=== PATIENT | male | born 1995 ===

== ENCOUNTER 2024-08-03 16:03 | Emergency (ER) | payer BC, SELFPAY ==
--- NOTE | 2024-08-03 16:09 | ED_ITS ---
HPI - General Adult General Time Seen by Provider: 16:09 Date Seen: 08/03/24 Chief complaint: Abdominal Pain Stated complaint: Bowel Pain Time Seen by Provider: 08/03/24 16:08 Source: patient, RN notes reviewed and old records reviewed Mode of arrival: ambulatory Limitations: no limitations History of Present Illness HPI narrative: 28-year-old male who comes in today with low abdominal pain. This been going on for 3 days. He reports that he has been stooling but less than usual and feels like he is not completely emptying. No blood in the stools. No fevers or chills. Had COVID a couple weeks ago and had vomiting none but that is resolved. Denies urinary symptoms. Reports history of a urethral reconstruction related to trauma about 10 years ago. Related Data Home Medications ?Medication ?Instructions ?Recorded ?Confirmed methylphenidate HCl 54 mg 54 mg PO QAM 08/03/24 08/03/24 tablet,extended release 24 hr omeprazole 20 mg capsule,delayed 20 mg PO DAILY 08/03/24 08/03/24 release venlafaxine 75 mg capsule,extended 75 mg PO DAILY 08/03/24 08/03/24 release 24 hr Previous Rx's ?Medication ?Instructions ?Recorded docusate sodium 100 mg capsule 100 mg PO BID #10 caps 08/03/24 (Colace) Allergies Allergy/AdvReac Type Severity Reaction Status Date / Time sulfamethoxazole (From Allergy Unknown Verified 08/03/24 16:43 Bactrim) trimethoprim (From Bactrim) Allergy Unknown Verified 08/03/24 16:43 Exam Narrative: Exam Narrative: General: Well-developed and well-nourished, no acute distress Head: Atraumatic and normocephalic Eyes: Pupils are equal reactive, extraocular motions intact, conjunctiva clear ENT: External nose and ears are normal, posterior pharynx without erythema or exudate Neck: No midline cervical tenderness, full spontaneous range of motion the neck, trachea midline, no adenopathy Heart: Regular rate and rhythm no murmurs or thrills Lungs: Clear to auscultation bilaterally without wheezes or crackles Abdomen: Soft, suprapubic and right lower quadrant tenderness, nondistended with active bowel sounds Musculoskeletal: No tenderness, deformity, or edema Neurologic: Awake, alert, and oriented x3, no gross focal neurologic deficits, cranial nerves intact as tested Psych: Mood and affect are appropriate Skin: No rashes Const: Vital Signs, click to edit/add: Vital Signs - 24 hr 08/03/24 16:12 Temperature 97.2 F L Pulse Rate [Pulse Oximeter] 96 Respiratory Rate 20 Blood Pressure [Ri ght Upper Arm] 152/112 H Pulse Oximetry 96 Oxygen Delivery Me thod Room Air Course Course ED Course: Reviewed most recent nurse triage note from July 20 when patient called, at that time COVID positive with vomiting. Also reviewed [facility] roenterology visit from February 2024 which was for elevated LFTs, patient also has a history MASLD and elevated AST and ALT. Patient presents with 3 days of lower abdominal pain and pressure, no diarrhea, feels like he is not completely emptying his bowels. No fever. On exam here has suprapubic and right lower quadrant tenderness. Concern for possible colitis, appendicitis, constipation also possible but clinically little less likely as patient says he has been moving his bowel. Labs and CT scan are ordered. Reevaluation(s) Time of Reevaluation #1: 17:09 Reevaluation #1: Labs independently interpreted by me with normal CBC. CT abdomen pelvis and panel interpreted by me does not demonstrate any acute intra-abdominal or pelvic pathology, no evidence for acute appendicitis, diverticulitis, colitis, obstruction. CT abd/pelvis: IMPRESSION: 1. Normal appendix. No acute appendicitis. 2. Small amount of hyperdense material within the gastric lumen and loops of small bowel in the right lower quadrant, incompletely evaluated on this single- phase examination, likely related to ingested contents. If there is clinical suspicion for a gastrointestinal bleed, recommend repeat multiphasic CT utilizing a gastrointestinal bleed protocol. 3. Severe diffuse hepatic steatosis. 4. Otherwise, no acute abdominopelvic findings. The etiology of the patient`s abdominal pain is not elucidated on this examination. Time of Reevaluation #2: 17:16 Reevaluation #2: Labs in bili interpreted by me with normal basic metabolic panel, elevated AST, ALT, and direct bilirubin which have previously been seen for this patient and related to MASLD. Urinalysis is pending. Vital Signs Vital signs: Initial Vital Signs Temperature 97.2 F L 08/03/24 16:12 Temperature Source Temporal Artery Scan 08/03/24 16:12 Pulse Rate 96 08/03/24 16:12 Respiratory Rate 20 04/29/25 16:12 Blood Pressure 152/112 H 08/03/24 16:12 Blood Pressure Mean 125 H 08/03/24 16:12 Blood Pressure Position Sitting 08/03/24 16:12 Pulse Oximetry 96 08/03/24 16:12 Oxygen Delivery Method Room Air 08/03/24 16:12 Vital Signs Temperature 97.2 F L 08/03/24 16:12 Pulse Rate 96 08/03/24 16:12 Respiratory Rate 08/03/24 16:12 Blood Pressure 152/112 H 08/03/24 16:12 Pulse Oximetry 96 08/03/24 16:12 Oxygen Delivery Method Room Air 08/03/24 16:12 Temperature 97.2 F L 08/03/24 16:12 Pulse Rate 96 08/03/24 16:12 Respiratory Rate 08/03/24 16:12 Blood Pressure 152/112 H 08/03/24 16:12 Pulse Oximetry 96 08/03/24 16:12 Oxygen Delivery Method Room Air 08/03/24 16:12 Medical Decision Making Lab Data Labs: Lab Results 08/03/24 08/03/24 Range/Units 16:29 16:40 WBC 5.64 (4.50-11.00) K/uL RBC 5.38 (4.30-5.90) m/uL Hgb 16.3 (13.5-17.5) gm/dL Hct 47.4 (37.0-53.0) % MCV 88 (80-100) fL MCH 30 (26-34) pg MCHC 34 (32-36) gm/dL RDW Coeff of [place] 12.0 (11.5-15.5) % Plt Count 361 (140-440) K/uL Neut % (Auto) 54.9 (42.0-72.0) % Lymph % (Auto) 29.8 (20-44) % [place] % (Auto) 9.4 (0.0-11.0) % Eos % (Auto) 4.6 (0.0-7.0) % Baso % (Auto) 0.9 (0.0-3.0) % Neut # (Auto) 3.10 (1.7-7.0) K/uL Lymph # (Auto) 1.68 (0.90-2.90) K/uL [place] # (Auto) 0.50 (0.00-0.90) K/UL Eos # (Auto) 0.26 (0.00-0.50) K/uL Baso # (Auto) 0.05 (0.00-0.30) K/uL Abs Immat Gran (auto) 0.02 (0.00-0.30) K/uL Imm/Tot Granulo (auto) 0.4 % Sodium 137 (135-149) mmol/L Potassium 3.9 (3.6-5.1) mmol/L Chloride 100 (96-114) mmol/L Carbon Dioxide 25 (20-32) mmol/L Anion Gap 12 (7-15) mEq/L BUN 11 (5-24) mg/dL Creatinine 1.0 (0.5-1.5) mg/dL Estimated Creat Clear 136.23 Estimated GFR 106 ml/min Glucose 106 (60-115) mg/dL Calcium 9.8 (8.4-10.6) mg/dL Total Bilirubin 1.4 (0.1-1.5) mg/dL Direct Bilirubin 0.6 H (0.0-0.5) mg/dL AST 180 H (12-35) U/L ALT 426 H (4-50) U/L Alkaline Phosphatase 97 (40-150) U/L Total Protein 7.8 (6.0-8.3) g/dL Albumin 5.0 (3.3-5.0) g/dL Urine Color Yellow (Yellow) Urine Appearance Clear (Clear) Urine pH 6.0 (5.0-8.5) Ur Specific [place] <= 1.005 (1.000-1.030) Urine Protein Negative (Negative) Urine Glucose (UA) Negative (Negative) Urine Ketones Negative (Negative) Urine Blood Negative (Negative) Urine Nitrite Negative (Negative) Urine Bilirubin Negative (Negative) Urine Urobilinogen 0.2 (0.2-1.0) Ur Leukocyte Esterase Negative (Negative) Discharge Plan Discharge Clinical Impression: Acute pelvic pain Patient Disposition: Home, Self-Care Condition: Stable Instructions: Pelvic Pain in Men (ED) Additional Instructions: Take stool softeners prescribed Tylenol and ibuprofen as needed for pain Follow-up with your primary care doctor in 3-5 days if needed Activity Level: No Restrictions Discharge Diet: Clear Liquid Prescriptions: New docusate sodium [Colace] 100 mg capsule 100 mg PO BID Qty: 10 0RF No Action venlafaxine 75 mg capsule,extended release 24hr 75 mg PO DAILY methylphenidate HCl 54 mg tablet extended release 24hr 54 mg PO QAM omeprazole 20 mg capsule,delayed release(DR/EC) 20 mg PO DAILY Stand Alone Forms: [facility] Info Instructions
[2024-08-03 16:12] VITALS: BP 152/112; PULSE 96; RESP 20; TEMP 36.2; O2SAT 96; BMI 35.3
--- NOTE | 2024-08-03 16:28 | CRLHL7_ITS ---
For Patients: As a result of the 21st Century Cures Act, medical imaging exams and procedure reports are released immediately into your electronic medical record. You may view this report before your referring provider. If you have questions, please contact your health care provider. INDICATION: Abdominal pain. TECHNIQUE: Multiplanar CT examination of the abdomen and pelvis was performed after the administration of 143 mL Isovue 370 intravenous contrast. COMPARISON: None. FINDINGS: Lower chest: No focal consolidation. Normal heart size. No pleural effusions or pneumothorax. Subsegmental and dependent atelectasis. Small hiatal hernia. Liver: Severe diffuse hepatic steatosis. Gallbladder: Unremarkable. Biliary: Unremarkable. Pancreas: Within normal limits. Spleen: Unremarkable. Adrenal glands: Unremarkable. Renal/ureters/bladder: Normal in size and symmetrically enhancing. No obstructive uropathy. No hydronephrosis or obstructive urinary calculi. No suspicious renal masses. The ureters appear unremarkable. The bladder is within normal limits. Pelvis: Unremarkable prostate. Gastrointestinal: Small amount of hyperdense material within the small bowel of the right lower quadrant and gastric lumen, poorly evaluated on this single-phase examination, may be related to ingested contents. No bowel wall thickening or bowel obstruction. Normal appendix. No significant colonic diverticulosis. Mild colonic stool burden. Vasculature: No aortic aneurysm. The portal vein remains patent. No significant atherosclerotic calcifications. Lymph nodes: No pathologic lymphadenopathy by size criteria. Peritoneum: No free fluid or pneumoperitoneum. No drainable fluid collections. Abdominal wall/soft tissues: Unremarkable. Small fat containing umbilical hernia. Bones: No acute osseous abnormalities. Chronic right L5 pars defect. IMPRESSION: 1. Normal appendix. No acute appendicitis. 2. Small amount of hyperdense material within the gastric lumen and loops of small bowel in the right lower quadrant, incompletely evaluated on this single-phase examination, likely related to ingested contents. If there is clinical suspicion for a gastrointestinal bleed, recommend repeat multiphasic CT utilizing a gastrointestinal bleed protocol. 3. Severe diffuse hepatic steatosis. 4. Otherwise, no acute abdominopelvic findings. The etiology of the patient`s abdominal pain is not elucidated on this examination. Please note that all CT scans at this facility use dose modulation, iterative reconstruction, and/or weight-based dosing when appropriate to reduce radiation dose to as low as reasonably achievable. Dictated by Orion Ramírez MD @ 08/03/2024 5:02:57 PM (Electronically Signed)
[2024-08-03 16:46] LABS: Basophils Absolute Auto 0.05 K/uL (0.00-0.30); Basophils Percent Auto 0.9 % (0.0-3.0); Eosinophils Absolute Auto 0.26 K/uL (0.00-0.50); Eosinophils Percent Auto 4.6 % (0.0-7.0); Hematocrit 47.4 % (37.0-53.0); Hemoglobin* 16.3 gm/dL (13.5-17.5); Immature Granulocytes Abs Auto 0.02 K/uL (0.00-0.30); Immature Granulocytes Pct Auto 0.4 %; Lymphocytes Absolute Auto 1.68 K/uL (0.90-2.90); Lymphocytes Percent Auto 29.8 % (20-44); Mean Corpuscular HGB Conc 34 gm/dL (32-36); Mean Corpuscular Hemoglobin 30 pg (26-34); Mean Corpuscular Volume 88 fL (80-100); Monocytes Percent Auto 9.4 % (0.0-11.0); Neutrophils Percent Auto 54.9 % (42.0-72.0); Platelet Count* 361 K/uL (140-440); Red Blood Count 5.38 m/uL (4.30-5.90); White Blood Count* 5.64 K/uL (4.50-11.00)
[2024-08-03 16:49] LABS: Slide Review Reflex No
[2024-08-03 17:04] LABS: Chloride* 100 mmol/L (96-114)
[2024-08-03 17:05] LABS: Potassium* 3.9 mmol/L (3.6-5.1); Sodium* 137 mmol/L (135-149)
[2024-08-03 17:07] LABS: Alanine Aminotransferase* 426 U/L (4-50); Alkaline Phosphatase* 97 U/L (40-150); Anion Gap 12 mEq/L (7-15); Aspartate Amino Transferase* 180 U/L (12-35); Bilirubin Direct* 0.6 mg/dL (0.0-0.5); Bilirubin Total* 1.4 mg/dL (0.1-1.5); Blood Urea Nitrogen* 11 mg/dL (5-24); Calcium* 9.8 mg/dL (8.4-10.6); Carbon Dioxide* 25 mmol/L (20-32); Est. Creatinine Clearance* 136.23; Estimated Glomerular Filt Rate 106 ml/min; Glucose* 106 mg/dL (60-115); Total Protein* 7.8 g/dL (6.0-8.3)
[2024-08-03 17:10] LABS: Appearance Urine Clear (Clear); Bilirubin Urine Negative (Negative); Blood Urine Negative (Negative); Color Urine Yellow (Yellow); Glucose Urine Negative (Negative); Ketones Urine Negative (Negative); Leukocyte Esterase Urine Negative (Negative); Nitrite Urine Negative (Negative); Protein Urine Negative (Negative); Specific Gravity Urine <= 1.005 (1.000-1.030); Urobilinogen Urine 0.2 (0.2-1.0)
[2024-08-03 17:35] LABS: Bacteria Urine Few; RBC Urine 0-2 (0-2); Squamous Epithelial Cell Urine Few (None-Few); WBC Urine 0-2 (0-5)
== END 2024-08-03 17:53 | disposition home or self-care (01) ==
PROVIDERS: Emergency Provider Family Medicine; PCP Surgery
DX: R10.2 Pelvic and perineal pain (principal)
CPT/HCPCS: 36415; 74177; 80048; 80076; 81001; 85025; 87086; 99283; 99284; Q9967

== ENCOUNTER 2024-08-06 16:34 | Emergency (ER) | payer BC, SELFPAY ==
--- OUTSIDE RECORDS SUMMARY | 2024-08-06 16:37 | XMS_ITS | Clinical Summary ---
Author Organization [facility] Address [address] [place] [id number] Care Team Providers Care Customer Consultant Name Role Phone Willie Gonzalez MD Primary Care Provider [phone] Allergies Active Allergy Reactions Criticality Noted Date Comments Sulfamethoxazole-Trime thoprim Rash 03/29/2013 Prednisone Other - Describe In Comment Field 11/21/2022 Depression and Irritability. Medications methylphenidate (Concerta) 54 mg extended-release tabletIndications:At tention deficit hyperactivity disorder (ADHD), predominantly inattentive type Take 1 Tablet (54 mg) by mouth once daily. 30 Tablet 4 Active venlafaxine (EFFEXOR XR) 75 mg cp24 Extended-Release capsuleIndications:G AD (generalized anxiety disorder),Moderate single current episode of major depressive disorder (HC) Take 1 Capsule (75 mg) by mouth once daily with a meal. 90 Capsule 3 4 Active methylphenidate (Concerta) 54 mg extended-release tabletIndications:At tention deficit hyperactivity disorder (ADHD), predominantly inattentive type Take 1 Tablet (54 mg) by mouth once daily. 30 Tablet 4 Active cyclobenzaprine (FLEXERIL) 10 mg tabletIndications:Ce rvical strain, acute, initial encounter Take 1 Tablet (10 mg) by mouth 3 times daily if needed for Muscle Spasm. 30 Tablet 4 Active methylphenidate 54 mg extended-release tabletIndications:At tention deficit hyperactivity disorder (ADHD), predominantly inattentive type Take 1 Tablet (54 mg) by mouth once daily. 30 Tablet 5 Active methylphenidate ER (Concerta) 54 mg extended release tabletIndications:At tention deficit hyperactivity disorder (ADHD), predominantly inattentive type Take 1 Tablet (54 mg) by mouth once daily. 30 Tablet 5 Active omeprazole (PRILOSEC) 20 mg Delayed-Release capsuleIndications:H istory of gastroesophageal reflux (GERD) Take 1 Capsule (20 mg) by mouth once daily before a meal. Take 30 minutes prior to a meal 90 Capsule 3 5 Active methylphenidate ER (Concerta) 54 mg extended release tabletIndications:At tention deficit hyperactivity disorder (ADHD), predominantly inattentive type Take 1 Tablet (54 mg) by mouth once daily. 30 Tablet 5 025 Active Problems Problem Noted Date Diagnosed Date Gastroesophageal reflux disease 05/23/2023 Lumbar pars defect 02/14/2022 Chronic low back pain without sciatica Controlled substance agreement signed 07/31/2018 Overview (07/31/2018): Signed 07/29/18 Dr Soraida Alston Psychiatry Cannabis abuse 05/26/2016 Overview (03/25/2022): Quit using 12/2021 BRYCE (generalized anxiety disorder) 05/24/2016 Moderate single current epis ode of major depressive disorder 05/24/2016 Attention deficit disorder without mention of hy peractivity 01/23/2010 Resolved Problems Problem Noted Date Diagnosed Date Resolved Date Controlled substance agreement signed 08/30/2016 04/11/2021 Overview (08/30/2016): Signed 06/11/16 Fabby Castellanos MD, psychiatry/ Cluster C personality disorder 05/24/2016 06/22/2021 Marijuana abuse 08/01/2015 12/17/2017 Adjustment disorder with mix ed anxiety and depressed mood 02/06/2015 04/11/2021 Unspecified adjustment reaction 12/14/2009 02/06/2015 Overview (12/14/2009): Evaluate for mood, behavior, ADD Encounters Date Type Department Care Team Description 08/05/2024 Travel 07/20/2024 Nurse Triage [facility] [address] [place] [address] Willie Gonzalez MD Vomiting; Covid-19 Positive Result 06/01/2024 3:40 PM LICENSED NUCLEAR OPERATOR Telemedicine [facility] [address] [facility] [address] Willie Gonzalez MD Medication Management 06/01/2024 Travel 05/31/2024 Refill [facility] [address] [place] [address] Willie Gonzalez MD Refill Request (Methylphenidate) from Last 3 Months Immunizations Immunization Administration Dates Next Due COVID-19 VACCINE SPIKEVAX (M ODERNA 50MCG/0.5ML) 12YO+ PFS 05/23/2023 COVID-19 vaccine (Moderna 100mcg/0.5mL) PF, MDV 03/15/2021,08/17/2020,07/20/2020 COVID-19 vaccine (Pfizer-Bio NTech 30mcg/0.3mL) 12YO+ BIVALENT PF, MDV 03/25/2022 DTaP 12/04/2001, 9,02/22/1998,05/18,03/18/1997,01/24/1997 HPV 9 (Gardasil 9) 11/14/2023,06/22/2021 Hepatitis B (Peds) 05/18/1997,01/24/1997, 997 Hepatitis B, Unspecified 05/18/1997,01/24/1997,0 1996 Hib Conjugate, Unspecified 02/22/1998,,03/18/1997,01/24 Inactivated Polio Vaccine 05/18/1997,03/18/1997, 01/24/1997 Influenza Virus, Unspecified 03/11/2003 Influenza, IIV4 05/23/2023,12/24/2021,12/22/2019 MENINGOCOCCAL VACCINE 2 VIAL 2MO-55YO (MENVEO) 10/25/2013 MMR 01/05/2010,02/22/1998 Pneumococcal Poly,23-Valent (Pneumovax) 06/22/2021 Td (Age >=7 Years) 06/22/2021 Tdap 12/07/2009 Varicella Vaccine 09/22/2012,11/20/1998 Family History Medical History Relation Name Comments Psychiatric illness Father Unknown Mother donor egg used Psychiatric illness Paternal Aunt ADHD Psychiatric illness Paternal Grandfather dyslexia and possible ADD Heart Disease No Family History Relation Name Status Comments Father Mother Paternal Aunt Paternal Grandfather Social History Tobacco Use Types Packs/Day Years Used Date Smoking Tobacco: Every Day Cigarettes 0.3 2.3 Started: 2022 Smokeless Tobacco: Never Tobacco Cessation:Ready to Q uit: No; Counseling Given: Yes Comments:1 cigs per day Alcohol Use Standard Drinks/Week Comments Not Currently 0 (1 standard drink = 0.6 oz pur e alcohol) once a month PHQ-2 Answer Date Recorded PHQ-2 TOTAL SCORE 5 06/01/2024 Social Connections Answer Date Recorded Do you often feel lonely or isolated from those around you? 0 08/05/2024 Financial Resource Strain Answer Date R ecorded Difficulty of Paying Living Expenses 3 08/05/2024 Difficulty of Paying Living Expenses Not on file 08/05/2024 Food Insecurity Answer Date Recorded Do you worry your food will run out before you are able to buy more? 1 08/05/2024 Transportation Needs Answer Date Record ed Does lack of transportation keep you from medica l appointments? 1 08/05/2024 Does lack of transportation keep you from work, meetings or getting things that you need? 1 08/05/2024 Housing Stability Answer Date Recorded What is your housing situation today? 1 08/05/2024 Utilities Answer Date Recorded Do you have trouble paying f or utilities (for example, heat, electricity, water, phone)? 1 08/05/2024 Sex and Gender Information Value Date Recorded Sex Assigned at Not on file Legal Sex Male 7:58 AM LICENSED NUCLEAR OPERATOR Gender Identity Not on file Sexual Orientation Not on file Obstetrics History Last Filed Vital Signs Vital Sign Reading Time Taken Comments Blood Pressure 138/94 04/08/2024 4:18 PM LICENSED NUCLEAR OPERATOR rec heck Pulse 98 04/08/2024 4:15 PM LICENSED NUCLEAR OPERATOR Temperature 36.7 C (98 F) 12/22/2019 3:20 PM CDT Respiratory Rate 18 07/29/2018 2:13 PM CDT Oxygen Saturation 85% 04/08/2024 4:15 PM LICENSED NUCLEAR OPERATOR Inhaled Oxygen Concentration - - Weight 131.9 kg (290 lb 11.2 oz) 04/08/2024 4:15 PM LICENSED NUCLEAR OPERATOR Height 193 cm (6' 3.98) 01/02/2023 2:47 PM CDT Body Mass Index 35.4 01/02/2023 2:47 PM CDT Plan of Treatment Upcoming Encounters Date Type Department Care Team (Late st Contact Info) Description 08/10/2024 2:55 PM CDT Office Visit [facility] [address] [place] [address] Jackie Stubbs DO [address] [place] [address] Health Maintenance Due Date Last Done Comments BMI (ht and wt on same day) for age 18+ 12/21/2020 12/22/2019, 06/11/2019, 04/14/2019, Additional history exists COVID-19 vaccine series (2023- season) 2023 05/23/2023, 03/25/2022, 03/15/2021, Additional history exists Pneumococcal series for age 6-49 (2 of 2 - PCV) 11/13/2024 06/22/2021 Postponed from 06/22/2022 (Provider discretion) Influenza Vaccine (Season Ended) 2024 05/23/2023, 12/24/2021, 12/22/2019, Additional history exists Depression screening for age 12+ 06/01/2025 06/01/2024, 05/31/2024, 11/18/2023, Additional history exists Tetanus booster 06/23/2031 06/22/2021, 12/07/2009 Tdap Completed 12/07/2009 HIV for age 15-65 Completed 11/14/2023 Hepatitis C screening for age 18-79 Completed 11/14/2023 Procedures Procedure Name Priority Date/Time Associated Diagnosis Comments ANTI HIV 1/2 Routine 11/14/2023 4:54 PM CDT Screening for HIV (human immunodeficiency virus) ANTI HCV Routine 11/14/2023 4:54 PM CDT Need for hepatitis C screening test from Last 3 Months or Most Recently Relevant to Health Maintenance Results * ANTI HCV (11/14/2023 4:54 PM CDT) Pathologist [facility] [place] HEPATITIS C ANTIBODY Non-Reacti ve Non-React missy 11/17/2023 2:[address] PM [address] [facility] Comment:Please note, per www .CDC.gov: If a patient is known to be at high risk of HCV infection, or is symptomatic, and the physician's suspicion of HCV infection is high, HCV RNA testing is often employed and is of diagnostic value, even after an initial negative anti-HCV test result. Blood BLOOD SPECIMEN / Unknown Venipuncture / Unknown 11/14/2023 4:54 PM CDT 11/14/2023 4:56 PM CDT Willie Gonzalez MD SEND OUTS Final Resu lt Performing Organization Address [facility]/ZIP Co de Phone Number [facility] [address] [place] [id number], [place] * ANTI HIV 1/2 [33697.0] (11/14/2023 4:54 PM CDT) [facility] HIV-1/HIV-2 SCREEN Non-Reacti ve Non-Reacti ve 11/17/2023 2:51 [address] [facility] Comment:HIV-1 p24 and HIV-1/ HIV-2 Ab Not Detected. Blood BLOOD SPECIMEN / Unknown Venipuncture / Unknown 11/14/2023 4:54 PM CDT 11/14/2023 4:56 PM CDT Willie Gonzalez MD SEND OUTS Final Resu lt Performing Organization Address City/[facility]/ZIP Co de Phone Number [facility] [address] [place] [id number], [place] from Last 3 Months or Most Recently Relevant to Health Maintenance Insurance [facility] [place] Care Teams Customer Consultant Relationship Specialty Start Date End Date Willie Gonzalez MD [address] [place] [address] PCP - General Family Practice 12/05/21
[2024-08-06 16:50] VITALS: BP 156/106; PULSE 117; RESP 18; TEMP 36.4; O2SAT 97; BMI 33.7
[2024-08-06 17:47] VITALS: BP 143/97; PULSE 111; RESP 14; TEMP 36.1; O2SAT 97; BMI 35.3
--- NOTE | 2024-08-06 18:13 | CRLHL7_ITS ---
For Patients: As a result of the Century Cures Act, medical imaging exams and procedure reports are released immediately into your electronic medical record. You may view this report before your referring provider. If you have questions, please contact your health care provider. INDICATION: RLQ ABD PAIN COMPARISON: 08/03/24 CT abdomen and pelvis TECHNIQUE: CT of the abdomen and pelvis with and without intravenous contrast () utilizing a GI bleed protocol. Reconstructed images/MIPS were created. FINDINGS: Lung bases: No pleural effusion. Liver: Smooth hepatic contour. There is hepatic steatosis with areas of focal fatty sparing. No suspicious hepatic lesions are identified. Gallbladder and biliary tree: Unremarkable CT appearance. Spleen: No splenomegaly. Pancreas: Normal. Adrenal glands: Normal. Kidneys and ureters: No hydroureteronephrosis. No suspicious renal lesions are identified. Bladder: Unremarkable CT appearance. Visualized reproductive organs: Unremarkable CT appearance. Gastrointestinal tract: No active contrast extravasation is detected in the bowel. Normal appendix. No focal abnormally dilated loops of bowel. Peritoneal cavity: No free fluid or free air. Lymph nodes: No enlarged abdominal or pelvic lymph nodes by CT size criteria. Vessels: No abdominal aortic aneurysm. The abdominal aorta and its major branches are patent. Abdominal and pelvic wall: Normal. Bones: No acute osseous findings. Similar mild anterior vertebral body wedging centered at the thoracolumbar junction. There are multilevel Schmorl`s nodes. Similar chronic right-sided L5 pars defect. IMPRESSION: 1. No acute findings. No active contrast extravasation is detected in the bowel. 2. Chronic and incidental findings as detailed above. Please note that all CT scans at this facility use dose modulation, iterative reconstruction, and/or weight-based dosing when appropriate to reduce radiation dose to as low as reasonably achievable. Dictated by John Etienne MD @ 08/06/2024 7:40:37 PM (Electronically Signed)
--- NOTE | 2024-08-06 18:23 | ED_ITS ---
HPI - General Adult General Chief complaint: Abdominal Pain Stated complaint: stomach pain Time Seen by Provider: 08/06/24 17:48 Source: patient Mode of arrival: ambulatory Limitations: no limitations History of Present Illness HPI narrative: 28-year-old male presenting today with right lower quadrant abdominal pain is been going on for 6 days. Patient was seen in the emergency department 3 days ago where no source of his pain was identified at that time. He was instructed to take a stool softener which she has been doing. He states he has been having daily bowel movements, last 1 was yesterday however, he states that his bowel movement yesterday was dark black. He denies taking any Pepto-Bismol or iron supplementation. He states that he feels slightly lightheaded that the pain has not gotten any better in the last 3 days. He states that this morning he vomited. Has been able to eat anything today and for most of yesterday. Denies any difficulty with urination. Denies any blood in his urine urine or blood in his vomitus. Denies chest pain, denies feeling short of breath. Reviewing his workup from 3 days ago, LFTs are elevated. He does have a history of elevated LFTs and fatty liver. He also states that he had a urethral reconstruction, denies any intra-abdominal surgery. CT scan done 3 days ago showed diffuse hepatic steatosis, and a small amount of hyperdense material within the gastric lumen and loops of small bowel in the right lower quadrant incompletely evaluated. Likely related to ingested contents however, there is a clinical suspicion for GI bleed recommend repeat m ultiphasic CT using a GI bleed protocol. Patient denies any family history of inflammatory bowel disease or colon cancer. Related Data Home Medications ?Medication ?Instructions ?Recorded ?Confirmed methylphenidate HCl 54 mg 54 mg PO QAM 08/03/24 08/03/24 tablet,extended release 24 hr omeprazole 20 mg capsule,delayed 20 mg PO DAILY 08/03/24 08/03/24 release venlafaxine 75 mg capsule,extended 75 mg PO DAILY 08/03/24 08/03/24 release 24 hr Previous Rx's ?Medication ?Instructions ?Recorded docusate sodium 100 mg capsule 100 mg PO BID #10 caps 08/03/24 (Colace) Allergies Allergy/AdvReac Type Severity Reaction Status Date / Time sulfamethoxazole (From Allergy Unknown Verified 08/06/24 18:43 Bactrim) trimethoprim (From Bactrim) Allergy Unknown Verified 08/06/24 18:43 Review of Systems Status of ROS: Reports: 10 or more systems reviewed and unremarkable except as noted in History and below [facility] Social History Smoking Status: Never smoker How often do you have a drink containing alcohol: monthly or less AUDIT-C Alcohol total score: 1 Non-prescribed substance use: denies use service: No Exam Narrative: Exam Narrative: Overweight, well-developed patient in no acute distress. Alert and oriented. Answers questions appropriately. Mood and affect are appropriate. Thoughts are goal oriented and rational. No tangential or magical thinking noted. Patient speaks in full sentences without needing to catch his breath. It does not appear as though the patient wears deodorant and he has a very strong odor. HEENT: Normocephalic atraumatic. Pupils are equally round reactive to light. Extraocular muscles are intact. Conjunctivae are moist without any icterus noted. Moist mucous membranes. Posterior pharynx is normal. Neck is soft. Cardiovascular: Tachycardic. S1-S2 present without any murmurs. Lungs: Clear to auscultation bilaterally no wheezes rhonchi or rales are appreciated. Patient takes deep breaths without any discomfort. Abdomen: Soft and nondistended with normal bowel sounds. He has some diffuse discomfort across the lower abdomen, worse on the right. No right upper quadrant, left upper quadrant or epigastric pain. Extremities: Bilateral lower extremities are without edema. Skin: Well perfused without any obvious rashes. Const: Vital Signs, click to edit/add: Vital Signs - 24 hr 08/06/24 16:50 08/06/24 17:47 Temperature 97.6 F 97 F L Pulse Rate [Pulse Oximeter] 117 H 111 H Respiratory Rate 18 14 Blood Pressure [Ri ght Upper Arm] 156/106 H 143/97 H Pulse Oximetry 97 97 Oxygen Delivery Me thod Room Air Room Air Course Course ED Course: IV is established. Patient appears clinically dehydrated to 2 L of normal saline were ordered. Labs were drawn: CBC shows hemoconcentration with a hemoglobin of 18. The electrolytes are unremarkable. LFTs continue to be elevated. Urine shows signs of dehydration with 1+ protein, 2+ ketone. Normal CRP. Normal lipase. Lactate slightly elevated 2.2. Given his worsening pain and potential abnormality noted on previous CT and dark stools, we did proceed with a GI bleed protocol abdominal CT scan. This was unremarkable. Vital Signs Vital signs: Initial Vital Signs Temperature 97.6 F 08/06/24 16:50 Temperature Source Temporal Artery Scan 08/06/24 16:50 Pulse Rate 117 H 08/06/24 16:50 Respiratory Rate 18 08/06/24 16:50 Blood Pressure 156/106 H 08/06/24 16:50 Blood Pressure Mean 122 H 08/06/24 16:50 Pulse Oximetry 97 08/06/24 16:50 Oxygen Delivery Method Room Air 08/06/24 16:50 Vital Signs Temperature 97.6 F 08/06/24 16:50 Pulse Rate 117 H 08/06/24 16:50 Respiratory Rate 18 08/06/24 16:50 Blood Pressure 156/106 H 08/06/24 16:50 Pulse Oximetry 97 08/06/24 16:50 Oxygen Delivery Method Room Air 08/06/24 16:50 Temperature 97 F L 08/06/24 17:47 Pulse Rate 111 H 08/06/24 17:47 Respiratory Rate 14 08/06/24 17:47 Blood Pressure 143/97 H 08/06/24 17:47 Pulse Oximetry 97 08/06/24 17:47 Oxygen Delivery Method Room Air 08/06/24 17:47 Medications Administered Medications: Generic Name Dose Route Start Last Admin Trade Name Freq PRN Reason Stop Dose Admin Sodium Chloride 1,000 mls @ 1,000 mls/hr 08/06/24 19:45 08/06/24 20:17 0.9 % Sodium Chloride 1000 Ml IV 08/06/24 20:44 1,000 mls/hr .Q1H GINNA Administration Discontinued Medications Generic Name Dose Route Start Last Admin Trade Name Freq PRN Reason Stop Dose Admin Sodium Chloride 1,000 mls @ 1,000 mls/hr 08/06/24 18:15 08/06/24 20:15 0.9 % Sodium Chloride 1000 Ml IV 08/06/24 19:14 Infused .Q1H GINNA Infusion Medical Decision Making MDM Narrative Medical decision making narrative: 28 year male with abdominal discomfort of unclear etiology, dehydration. Recommend patient follow-up with primary care provider and recommend scheduling a colonoscopy. Medical Records Medical records reviewed: Yes I reviewed the patient's medical records Lab Data Lab results reviewed: Yes I reviewed the patient's lab results Labs: Lab Results 08/06/24 08/06/24 Range/Units 18:30 18:35 WBC 6.51 (4.50-11.00) K/uL RBC 5.47 (4.30-5.90) m/uL Hgb 18.0 H (13.5-17.5) gm/dL Hct 48.2 (37.0-53.0) % MCV 88 (80-100) fL MCH 33 (26-34) pg MCHC 37 H (32-36) gm/dL RDW Coeff of Namrata 11.8 (11.5-15.5) % Plt Count 403 (140-440) K/uL Neut % (Auto) 59.0 (42.0-72.0) % Lymph % (Auto) 27.8 (20-44) % Dubois % (Auto) 9.5 (0.0-11.0) % Eos % (Auto) 2.5 (0.0-7.0) % Baso % (Auto) 0.9 (0.0-3.0) % Neut # (Auto) 3.84 (1.7-7.0) K/uL Lymph # (Auto) 1.81 (0.90-2.90) K/uL Dubois # (Auto) 0.60 (0.00-0.90) K/UL Eos # (Auto) 0.16 (0.00-0.50) K/uL Baso # (Auto) 0.06 (0.00-0.30) K/uL Abs Immat Gran (auto) 0.02 (0.00-0.30) K/uL Imm/Tot Granulo (auto) 0.3 % Sodium 137 (135-149) mmol/L Potassium 3.9 (3.6-5.1) mmol/L Chloride 97 (96-114) mmol/L Carbon Dioxide 25 (20-32) mmol/L Anion Gap 15 (7-15) mEq/L BUN 11 (5-24) mg/dL Creatinine 1.1 (0.5-1.5) mg/dL Estimated Creat Clear 123.84 Estimated GFR 94 ml/min Glucose 94 (60-115) mg/dL Lactate 2.2 H (0.5-1.9) mmol/L Calcium 9.8 (8.4-10.6) mg/dL Total Bilirubin 1.7 H (0.1-1.5) mg/dL Direct Bilirubin 0.7 H (0.0-0.5) mg/dL AST 200 H (12-35) U/L ALT 485 H (4-50) U/L Alkaline Phosphatase 90 (40-150) U/L C-Reactive Protein 0.5 (0.5-1.0) mg/dL Total Protein 8.1 (6.0-8.3) g/dL Albumin 5.2 H (3.3-5.0) g/dL Lipase 133 (23-300) U/L Urine Color Yellow (Yellow) Urine Appearance Clear (Clear) Urine pH 6.0 (5.0-8.5) Ur Specific Union 1.020 (1.000-1.030) Urine Protein 1+ A (Negative) Urine Glucose (UA) Negative (Negative) Urine Ketones 2+ A (Negative) Urine Blood Trace-intact A (Negative) Urine Nitrite Positive A (Negative) Urine Bilirubin 2+ A (Negative) Urine Urobilinogen 1.0 (0.2-1.0) Ur Leukocyte Esterase Negative (Negative) Urine RBC 0-2 (0-2) Urine WBC 0-2 (0-5) Ur Squamous Epith Cells Few (None-Few) Urine Bacteria Moderate A (None) Fine Granular Casts Few A (None) Imaging Data CT scan - abdomen: Attestation: I have reviewed the pertinent imaging results. Radiologist's impression: TECHNIQUE: CT of the abdomen and pelvis with and without intravenous contrast () utilizing a GI bleed protocol. Reconstructed images/MIPS were created. FINDINGS: Lung bases: No pleural effusion. Liver: Smooth hepatic contour. There is hepatic steatosis with areas of focal fatty sparing. No suspicious hepatic lesions are identified. Gallbladder and biliary tree: Unremarkable CT appearance. Spleen: No splenomegaly. Pancreas: Normal. Adrenal glands: Normal. Kidneys and ureters: No hydroureteronephrosis. No suspicious renal lesions are identified. Bladder: Unremarkable CT appearance. Visualized reproductive organs: Unremarkable CT appearance. Gastrointestinal tract: No active contrast extravasation is detected in the bowel. Normal appendix. No focal abnormally dilated loops of bowel. Peritoneal cavity: No free fluid or free air. Lymph nodes: No enlarged abdominal or pelvic lymph nodes by CT size criteria. Vessels: No abdominal aortic aneurysm. The abdominal aorta and its major branches are patent. Abdominal and pelvic wall: Normal. Bones: No acute osseous findings. Similar mild anterior vertebral body wedging centered at the thoracolumbar junction. There are multilevel Schmorl`s nodes. Similar chronic right-sided L5 pars defect. IMPRESSION: 1. No acute findings. No active contrast extravasation is detected in the bowel. 2. Chronic and incidental findings as detailed above. Discharge Plan Discharge Clinical Impression: Abdominal pain, Dehydration Patient Disposition: Home, Self-Care Condition: Stable Additional Instructions: Your workup today did not reveal the source of your pain. You did appear to be quite dehydrated. I recommend following up with your primary care provider this coming week and discussing with your doctor getting a colonoscopy scheduled. Prescriptions: No Action venlafaxine 75 mg capsule,extended release 24hr 75 mg PO DAILY methylphenidate HCl 54 mg tablet extended release 24hr 54 mg PO QAM omeprazole 20 mg capsule,delayed release(DR/EC) 20 mg PO DAILY docusate sodium [Colace] 100 mg capsule 100 mg PO BID Qty: 10 0RF Follow Up/Referrals: Willie Gonzalez MD [Primary Care Provider] - Stand Alone Forms: [employer] Info Instructions
--- OUTSIDE RECORDS SUMMARY | 2024-08-06 18:23 | XMS_ITS | Clinical Summary ---
Author Organization [facility] Address [address] [place] [id number] Care Team Providers Care Promotional Model Name Role Phone Willie Gonzalez MD Primary Care Provider [phone]- [phone] Allergies Active Allergy Reactions Criticality Noted Date [...] Team Description 08/05/2024 Travel 07/20/2024 Nurse Triage [facility] [address] [place] [address] Willie Gonzalez MD Vomiting; Covid-19 Positive Result 06/01/2024 3:40 PM [employer] Telemedicine [facility] [address] [place] [place] [address] Willie Gonzalez MD Medication Management 06/01/2024 Travel 05/31/2024 Refill [facility] [address] [place] [address] Willie Gonzalez MD Refill Request (Methylphenidate) from [...] on file Legal Sex Male 7:58 AM [employer] Gender Identity Not on file Sexual Orientation Not on file Obstetrics History Last Filed Vital Signs Vital Sign Reading Time Taken Comments Blood Pressure 138/94 04/08/2024 4:18 PM [employer] rec heck Pulse 98 04/08/2024 4:15 PM [employer] Temperature 36.7 C (98 F) 12/22/2019 3:20 PM CDT Respiratory Rate 18 07/29/2018 2:13 PM CDT Oxygen Saturation 85% 04/08/2024 4:15 PM [employer] Inhaled Oxygen Concentration - - Weight 131.9 kg (290 lb 11.2 oz) 04/08/2024 4:15 PM [employer] Height 193 cm (6' 3.98) 01/02/2023 2:47 PM CDT Body Mass Index 35.4 01/02/2023 2:47 PM CDT Plan of Treatment Upcoming Encounters Date Type Department Care Team (Late st Contact Info) Description 08/10/2024 2:55 PM CDT Office Visit [facility] [address] [place] [address] Jackie Stubbs DO [address] [place] [address] Health Maintenance Due Date Last Done Comments [...] ANTI HCV (11/14/2023 4:54 PM CDT) Pathologist [facility] HEPATITIS C ANTIBODY Non-Reacti ve Non-React missy 11/17/2023 2:38 PM CDT [facility] Comment:Please note, per www .CDC.gov: [...] OUTS Final Resu lt Performing Organization Address [facility]/ZIP Co de Phone Number [facility] [address] [place] [id number], [place] * ANTI HIV 1/2 [[id number]] (11/14/2023 4:54 PM CDT) [facility] HIV-1/HIV-2 SCREEN Non-Reacti ve Non-Reacti ve 11/17/2023 2:51 PM CDT [facility] Comment:HIV-1 p24 and HIV-1/ HIV-2 Ab Not Detected. Blood BLOOD SPECIMEN / Unknown Venipuncture / Unknown 11/14/2023 4:54 PM CDT 11/14/2023 4:56 PM CDT Willie Gonzalez MD SEND OUTS Final Resu lt Performing Organization Address City/[facility]/ZIP Co de Phone Number [facility] [address] [place] [id number], [place] from Last 3 Months or Most Recently Relevant to Health Maintenance Insurance [facility] [place] Care Teams Promotional Model Relationship Specialty Start Date End Date Willie Gonzalez MD [address] [place] [address] PCP - General Family Practice 12/05/21
[2024-08-06 19:09] LABS: Lactate* 2.2 mmol/L (0.5-1.9)
[2024-08-06 19:12] LABS: Basophils Absolute Auto 0.06 K/uL (0.00-0.30); Basophils Percent Auto 0.9 % (0.0-3.0); Eosinophils Absolute Auto 0.16 K/uL (0.00-0.50); Eosinophils Percent Auto 2.5 % (0.0-7.0); Hematocrit* 48.2 % (37.0-53.0); Immature Granulocytes Abs Auto 0.02 K/uL (0.00-0.30); Immature Granulocytes Pct Auto 0.3 %; Lymphocytes Absolute Auto 1.81 K/uL (0.90-2.90); Lymphocytes Percent Auto 27.8 % (20-44); Mean Corpuscular HGB Conc 37 gm/dL (32-36); Mean Corpuscular Hemoglobin 33 pg (26-34); Mean Corpuscular Volume 88 fL (80-100); Monocytes Percent Auto 9.5 % (0.0-11.0); Neutrophils Absolute Auto 3.84 K/uL (1.7-7.0); Platelet Count* 403 K/uL (140-440); RDW Coefficient of Variation % 11.8 % (11.5-15.5); Red Blood Count* 5.47 m/uL (4.30-5.90); White Blood Count* 6.51 K/uL (4.50-11.00)
[2024-08-06 19:19] LABS: Slide Review Reflex No
[2024-08-06 19:22] LABS: Appearance Urine Clear (Clear); Bilirubin Urine 2+ (Negative); Blood Urine Trace-intact (Negative); Color Urine Yellow (Yellow); Glucose Urine Negative (Negative); Ketones Urine 2+ (Negative); Leukocyte Esterase Urine Negative (Negative); Nitrite Urine Positive (Negative); Protein Urine 1+ (Negative)
[2024-08-06 19:24] LABS: Albumin* 5.2 g/dL (3.3-5.0); Chloride* 97 mmol/L (96-114); Potassium* 3.9 mmol/L (3.6-5.1); Sodium* 137 mmol/L (135-149)
[2024-08-06 19:26] LABS: Blood Urea Nitrogen* 11 mg/dL (5-24); Creatinine* 1.1 mg/dL (0.5-1.5); Est. Creatinine Clearance* 123.84; Estimated Glomerular Filt Rate 94 ml/min
[2024-08-06 19:27] LABS: Alanine Aminotransferase* 485 U/L (4-50); Alkaline Phosphatase* 90 U/L (40-150); Anion Gap 15 mEq/L (7-15); Aspartate Amino Transferase* 200 U/L (12-35); Bilirubin Direct* 0.7 mg/dL (0.0-0.5); Bilirubin Total* 1.7 mg/dL (0.1-1.5); Calcium* 9.8 mg/dL (8.4-10.6); Carbon Dioxide* 25 mmol/L (20-32); Glucose* 94 mg/dL (60-115); Lipase* 133 U/L (23-300); Total Protein* 8.1 g/dL (6.0-8.3)
[2024-08-06 19:30] LABS: C Reactive Protein* 0.5 mg/dL (0.5-1.0)
[2024-08-06] MEDS: 0.9 % SODIUM CHLORIDE 1000 ml 1,000 ML IV ×2 (19:45→20:17)
[2024-08-06 20:00] VITALS: BP 140/82; PULSE 72; RESP 16; O2SAT 97
[2024-08-06 20:09] LABS: Bacteria Urine Moderate; RBC Urine 0-2 (0-2); Squamous Epithelial Cell Urine Few (None-Few); WBC Urine 0-2 (0-5)
[2024-08-06 20:10] LABS: Fine Granular Casts Urine Few
== END 2024-08-06 20:35 | disposition home or self-care (01) ==
PROVIDERS: Emergency Provider Family Medicine; PCP Surgery
DX: R10.31 Right lower quadrant pain (principal); E86.0 Dehydration
CPT/HCPCS: 36415; 74174; 80048; 80076; 81001; 83605; 83690; 85025; 86140; 87086; 96360; 99284; 99285; J7030; Q9967